=== PATIENT | male | born 1950 | race Caucasian/White ===

== ENCOUNTER 2020-07-20 12:52 | Outpatient (CLI) | payer OTHER | END 2020-07-20 12:53 | disposition home or self-care (01) | LOC: COV 12:52 | PROVIDERS: ATTEND Ophthalmology | DX: Z01.818 Encounter for other preprocedural examination (principal); H25.12 Age-related nuclear cataract, left eye; Z20.828 Contact with and (suspected) exposure to other viral communicable diseases ==

== ENCOUNTER 2020-08-03 16:35 | Outpatient (CLI) | payer OTHER | END 2020-08-03 16:36 | disposition home or self-care (01) | LOC: COV 16:35 | PROVIDERS: ATTEND Ophthalmology | DX: Z01.818 Encounter for other preprocedural examination (principal); H25.12 Age-related nuclear cataract, left eye; Z20.828 Contact with and (suspected) exposure to other viral communicable diseases ==

== ENCOUNTER 2020-08-09 09:14 | Day surgery (SDC) | payer OTHER ==
[~2020-08-09 09:14] MED LIST: KETOROLAC 0.45% OPHTH DROPS ONE; PHENYLEPHRINE 2.5% OPHTH 2 ML DROPS ONE; PROPARACAINE 0.5% OPHTH DROPS 15 ML ONE
[2020-08-09] MEDS ORDERED: LACTATED RINGERS 500 ML IV ONE (10:02)
--- NOTE | 2020-08-09 10:30 | ANESTHESIA ---
Pre-Anesthesia VS, & Labs - Diagnosis Left eye nuclear sclerotic cataract - Procedure Left eye cataract extraction with IOL implant Vital Signs: Temp Pulse Resp BP Pulse Ox 36.4 C L 98 16 151/89 H 96 08/09/20 09:30 08/09/20 09:30 08/09/20 09:30 08/09/20 09:30 08/09/20 09:30 Height: 5 ft 8 in Weight (kg): 102 kg Body Mass Index: 34.2 BMI Classification: Obese - NPO >8 hours Home Medications and Allergies Home Medications: Ambulatory Orders Oxycodone HCl/Acetaminophen [Oxycodon-Acetaminophen 7.5-325] 2 each PO BID 08/08/20 Omeprazole [Prilosec] 20 mg PO BID 08/24/15 Oxycodone HCl/Acetaminophen [Oxycodon-Acetaminophen 7.5-325] 2 each PO BID 08/08/20 Allergies/Adverse Reactions: Allergies Allergy/AdvReac Type Severity Reaction Status Date / Time No Known Drug Allergies Allergy Verified 08/24/15 04:50 Anes History & Medical History - Anesthetic History Anesthesia Complications: reports: No previous complications - Medical History Cardiovascular: reports: None Pulmonary: reports: None Gastrointestinal: reports: GERD (controlled with medication) Urinary: reports: None Neuro: reports: None Musculoskeletal: reports: Chronic back pain (takes oxycodone) Endocrine/Autoimmune: reports: None Blood Disorders: reports: Anemia Skin: reports: None Smoking Status: Never smoker Psychosocial: reports: Alcohol (ocassional), Other (PTSD) - Surgical History General: Other Orthopedic: ACL reconstruction, Rotator cuff repair, Spine surgery (ACDF cervical spine) Exam General: Alert, Oriented x3, Cooperative, No acute distress Dental: Dentures full Upper, Dentures full Lower Mouth Openin Fingerbreadth Neck Mobility: Normal Mallampati classification: III Thyromental Distance: 4-6 cm Mental/Cognitive Status: Alert/Oriented X3, Normal for patient Plan Anesthesia Type: MAC Consent for Procedure(s) Verified and Reviewed: Yes Code Status: Attempt Resuscitation ASA classification: 2-Mild systemic disease Is this case an emergency?: No
[2020-08-09] MEDS ORDERED: CHONDR SULF/HYALURONATE SYRINGE IO ONE (10:41)
[2020-08-09] MEDS ORDERED: EPINEPHrine 1 MG/ML AMP IR ONE (10:41)
[2020-08-09] MEDS ORDERED: BRIMONIDINE 0.2% OPHTH DROPS 5 ML OPTH ONE (10:41)
[2020-08-09] MEDS ORDERED: TIMOLOL 0.5% OPHTH DROPS OPTH ONE (10:41)
[2020-08-09] MEDS ORDERED: BSS/LIDOCAINE/EPINEPHRINE 1 ML SYRINGE IO ONE (10:42)
[2020-08-09] MEDS ORDERED: PROPARACAINE 0.5% OPHTH DROPS 15 ML EACHEYE ONE (10:43)
[2020-08-09] MEDS ORDERED: TRIAMCIN/MOXIFLOX OPHTHALMIC 0.6 ML VIAL IO ONE ×2 (10:43→13:26)
[2020-08-09] MEDS ORDERED: VANCOMYCIN OPHTHALMI 8MG/0.8ML 8 MG/0.8 ML SYRINGE IO ONE ×2 (10:44→13:27)
[2020-08-09] MEDS ORDERED: fentaNYL 100 MCG/2 ML VIAL IVP ONE (10:45)
[2020-08-09] MEDS ORDERED: MIDAZOLAM 2 MG/2 ML VIAL IVP ONE (10:45)
[2020-08-09] MEDS ORDERED: CARBACHOL 0.01% 1.5 ML VIAL IO ONE ×2 (11:01→11:11)
[2020-08-09] MEDS ORDERED: LACTATED RINGERS 100 ML IV ONE (11:08)
[2020-08-09 11:21] VITALS: BP 115/77
[2020-08-09] MEDS ORDERED: EPINEPHrine 1 MG/ML AMP ONE (13:26)
[2020-08-09] MEDS ORDERED: BSS/LIDOCAINE/EPINEPHRINE 1 ML SYRINGE ONE (13:27)
[2020-08-09] MEDS ORDERED: TIMOLOL 0.5% OPHTH DROPS ONE (13:27)
[2020-08-09] MEDS ORDERED: BRIMONIDINE 0.2% OPHTH DROPS 5 ML ONE (13:27)
--- NOTE | 2020-08-09 13:51 | ANESTHESIA POST OP EVALUATION ---
Anesthesia Post Eval - Post Anesthesia Eval Vitals: Last Vital Signs Temp 36.3 C L 08/09/20 11:08 Pulse 92 08/09/20 11:08 Resp 16 08/09/20 11:08 BP 115/77 08/09/20 11:08 Pulse Ox 96 08/09/20 11:08 CV Function Including HR & BP: positive: Stable Pain Control: positive: Satisfactory Nausea & Vomiting: positive: Negative Mental Status: positive: Baseline Respiratory Status: Airway Patent Hydration Status: Satisfactory Anesthesia Complications: positive: None
--- NOTE | 2020-08-09 16:44 | OPERATIVE REPORT ---
DATE OF SERVICE: 08/09/2020 Physician: Hollis Paul MD PREOPERATIVE DIAGNOSIS: Visually significant cataract, left eye. This was his first cataract surger y. POSTOPERATIVE DIAGNOSIS: Visually significant cataract, left eye. This was his first cataract surge ry. PROCEDURE: Phacoemulsification with posterior chamber intraocular lens implant, left eye. SURGEON: Hollis Paul MD ANESTHESIA: Monitored anesthesia care. COMPLICATIONS: None. OPERATIVE INDICATIONS: This is a 70-year-old man with progressive vision loss in the left eye due to 2+ nuclear sclerotic and central irregularity cataract. Best corrected visual acuity was 20/30, wit h glare to 20/60 in the left eye. Indications for surgery are overall decrease in vision, difficulty seeing words on a computer screen, difficulty reading, difficulty seeing words, closed caption or ga me scores on TV, difficulty seeing street signs, difficulty driving in low light or at night, difficu lty driving at night because of headlights from other vehicles, and difficulty with glare or bright l ights in any situation. He was consented at length concerning risks and benefits of cataract surgery , after which he expressed a desire to proceed with surgery. OPERATIVE PROCEDURE: Patient was taken to OR #3 and placed under monitored anesthesia care. A surgi renee timeout was conducted confirming correct patient, correct procedure, and correct surgical site. He was given topical anesthesia, and prepped and draped in the usual sterile fashion. The eye was en tered at the 6 and 3 o'clock positions. Intracameral Shugarcaine was injected into the anterior pauline ranjeet, followed by Viscoat. A continuous-tear curvilinear capsulorrhexis was performed. The nucleus w as hydrodissected and phacoemulsified. The cortex was evacuated using automated infusion and aspirat ion. Provisc was injected in the capsular bag, and a 21.0 diopter intraocular lens was inserted into the bag. Infusion and aspiration was used to evacuate the viscoelastic materials. The eye was infl ated to a physiologic pressure using balanced salt solution and found to be watertight. Approximatel y 0.25 mL of a mixture of triamcinolone and moxifloxacin was injected transsclerally into the vitreou s in the inferotemporal quadrant. An additional 0.55 mL of a mixture of triamcinolone, moxifloxacin and vancomycin was injected subconjunctivally in the superior quadrant for infection and inflammation prophylaxis. Wound integrity was checked with Weck-Matilde sponges. The patient was taken from the Ope rating Room in good condition and given postoperative instructions. TD: 08/09/2020 11:24
== END 2020-08-09 09:15 | disposition home or self-care (01) ==
LOC: SDS 09:14
PROVIDERS: ATTEND Ophthalmology
DX: H25.12 Age-related nuclear cataract, left eye (principal); E66.9 Obesity, unspecified; Z68.34 Body mass index [BMI] 34.0-34.9, adult
CPT/HCPCS: 66984; A9270; J3490; J7120; V2632

== ENCOUNTER 2022-08-20 07:31 | Outpatient (CLI) | payer MEDICARE ==
--- NOTE | 2022-08-20 17:24 | XRAY Report ---
PROCEDURE: Shoulder 3 View LT INDICATIONS: RIGHT SHOULDER TECHNIQUE: 3 views of the shoulder were acquired. COMPARISON: None. FINDINGS: Bones: No fractures or dislocations. Moderate acromioclavicular joint and glenohumeral joint osteoa rthritic changes are seen. No suspicious bony lesions. Visualized ribs appear intact. Soft tissues: No suspicious soft tissue calcifications. IMPRESSION: Moderate left shoulder joint osteophyte is. No fracture or dislocation. No gross soft ti ssue abnormalities. Reviewed by: William Tucker MD on 08/20/2022 5:23 PM PDT Approved by: William Tucker MD on 08/20/2022 5:23 PM PDT Station ID: [id number]
== END 2022-08-20 07:32 | disposition home or self-care (01) ==
LOC: DI.S 07:31
PROVIDERS: ATTEND Internal Medicine
DX: M75.102 Unspecified rotator cuff tear or rupture of left shoulder, not specified as traumatic (principal); M19.012 Primary osteoarthritis, left shoulder

== ENCOUNTER 2024-02-26 09:06 | Day surgery (SDC) | payer MEDICARE, OTHER ==
[2024-02-26] MEDS: LACTATED RINGERS 1,000 ML IV ONE ×2 (09:30→11:21)
--- NOTE | 2024-02-26 10:43 | ANESTHESIA ---
Pre-Anesthesia VS, & Labs - Diagnosis screening - Procedure colonoscopy Vital Signs: Temp Pulse Resp BP Pulse Ox O2 Flow Rate 36.0 C L 92 16 113/81 H 97 02/26/24 09:20 02/26/24 09:20 02/26/24 09:20 02/26/24 09:20 02/26/24 09:20 Height: 5 ft 8 in Weight (kg): 91 kg Body Mass Index: 30.4 BMI Classification: Obese - NPO >8 hours Last Fluid Intake: am prep - Lab Results Lab results reviewed: Yes Home Medications and Allergies Home Medications: Ambulatory Orders Morphine Sulfate ER [Ms Contin] 50 mg PO BID 02/25/24 Omeprazole [Prilosec] 20 mg PO BID 08/24/15 Morphine Sulfate ER [Ms Contin] 50 mg PO BID 02/25/24 Allergies/Adverse Reactions: Allergies Allergy/AdvReac Type Severity Reaction Status Date / Time No Known Drug Allergies Allergy Verified 08/24/15 04:50 Anes History & Medical History - Anesthetic History Anesthesia Complications: reports: No previous complications Family history of Anesthesia Complications: Denies Family history of Malignant Hyperthermia: Denies - Medical History Cardiovascular: reports: None Pulmonary: reports: None Gastrointestinal: reports: GERD, GI bleed, Ulcers Urinary: reports: Benign prostate hypertrophy, Frequency Neuro: reports: None Musculoskeletal: reports: Chronic back pain Endocrine/Autoimmune: reports: None Blood Disorders: reports: Anemia Skin: reports: None Smoking Status: Never smoker - Surgical History Orthopedic: reports: ACL reconstruction, Rotator cuff repair, Spine surgery Exam General: Alert, Oriented x3, Cooperative Dental: Dentures full Upper (out), Dentures full Lower (out) Mouth Openin Fingerbreadth Neck Mobility: Normal Mallampati classification: II Thyromental Distance: 4-6 cm Respiratory: Lungs clear, Normal breath sounds, No respiratory distress Cardiovascular: Regular rate Neurological: Normal speech Mental/Cognitive Status: Alert/Oriented X3, Normal for patient Cognitive Status: Within normal limits Plan Anesthesia Type: Total IV Consent for Procedure(s) Verified and Reviewed: Yes Code Status: Attempt Resuscitation ASA classification: 2-Mild systemic disease Is this case an emergency?: No
[2024-02-26] MEDS ORDERED: PROPOFOL 500 MG/50 ML 500 MG/50 ML VIAL ONE (11:01)
[2024-02-26 11:55] VITALS: BP 121/57; O2SAT 97
--- NOTE | 2024-02-26 13:05 | ANESTHESIA POST OP EVALUATION ---
Anesthesia Post Eval - Post Anesthesia Eval Vitals: Last Vital Signs Temp 36.3 C L 02/26/24 11:40 Pulse 71 02/26/24 11:40 Resp 16 02/26/24 11:40 BP 121/57 L 02/26/24 11:40 Pulse Ox 97 02/26/24 11:40 O2 Flow Rate CV Function Including HR & BP: Stable Pain Control: Satisfactory Nausea & Vomiting: Negative Mental Status: Baseline Respiratory Status: Airway Patent Hydration Status: Satisfactory Anesthesia Complications: None
== END 2024-02-26 09:07 | disposition home or self-care (01) ==
LOC: SDS 09:06
PROVIDERS: ATTEND Surgery
PROC: 0DBL8ZZ Excision of Transverse Colon, Via Natural or Artificial Opening Endoscopic (ICD-10-PCS; principal; 2024-02-26 11:30)
DX: Z12.11 Encounter for screening for malignant neoplasm of colon (principal); D12.3 Benign neoplasm of transverse colon; K57.30 Diverticulosis of large intestine without perforation or abscess without bleeding; E66.9 Obesity, unspecified; Z68.30 Body mass index [BMI] 30.0-30.9, adult
CPT/HCPCS: 45385; J7120